=== PATIENT | female | born 1960 | race Caucasian/White ===

== ENCOUNTER 2017-07-27 11:03 | Emergency (ER) | payer OTHER ==
[~2017-07-27] VITALS: Ht 160 cm; Wt 71.3 kg
[~2017-07-27 11:03] MED LIST: ADVIL200 M1 PO; ASPIRIN81 M2 PO; Aspirin E.C. PO; CALCIUM 500 MG1 EACH PO; LISINOPRIL5 MG PO; PRILOSEC20 MG PO; VITAMIN D33000 UNIT PO
[2017-07-27 12:00] LABS: EOSINOPHIL (%) 0 % (0-5); HEMATOCRIT 41.1 % (36.0-46.0); IMMATURE GRANULOCYTE (%) 0.8 % (0.0-0.7); IMMATURE GRANULOCYTE COUNT 0.2 K/uL; INSTRUMENT ABS NEUTROPHIL CT 17.5 K/uL; LYMPHOCYTE COUNT 1.9 K/uL (1.0-2.8); MCH 25.7 PG (29.0-34.0); MCHC 32.1 G/DL (30.0-36.0); MEAN PLAT.VOLUME 10.5 uM^3 (9.5-12.4); MONOCYTE (%) 7.5 % (3-12); MONOCYTE COUNT 1.6 K/uL (0-0.8); NEUTROPHIL (%) 82.4 % (45-76); NEUTROPHIL COUNT 17.5 K/uL (1.8-6.4); PLATELET COUNT 450 K/uL (156-360); RBC DIS.WIDTH-CV 13.8 % (11.8-14.6); RBC DIS.WIDTH-SD 40.1 % (39-53); RED BLOOD COUNT 5.14 M/uL (3.80-5.20); WHITE BLOOD COUNT 21.2 K/uL (4.1-10.2)
[2017-07-27 12:08] LABS: INTER. NORMALIZED RATIO 1.6; PROTHROMBIN TIME 17.9 SEC (10.2-12.9)
[2017-07-27 12:10] LABS: CHLORIDE 102 mEq/L (99-109); MAGNESIUM 1.9 mg/dL (1.3-2.7); POTASSIUM 3.7 mEq/L (3.7-5.4); PTT 30.4 SEC (25-37); SODIUM 138 mEq/L (136-147)
[2017-07-27 12:12] LABS: GLUCOSE 103 mg/dL (70-99)
[2017-07-27 12:13] LABS: ANION GAP 16 MEQ/L (2-14)
[2017-07-27 12:14] LABS: TOTAL BILIRUBIN 0.7 mg/dL (0.0-1.0)
[2017-07-27 12:15] LABS: ALKALINE PHOSPHATASE 257 IU/L (3-129)
[2017-07-27 12:16] LABS: GFR ESTIMATE (CALCULATED) > 59 mL/min/
[2017-07-27 12:17] LABS: UREA NITROGEN (BUN) 13 mg/dL (9-23)
[2017-07-27 12:19] LABS: LIPASE 8 U/L (1.0-51.0)
[2017-07-27 12:21] LABS: TROP-I INTERPRETATION NEGATIVE; TROPONIN-I < 0.01 ng/mL (0.0-0.30)
[2017-07-27 14:05] VITALS: BP 106/79
== END 2017-07-27 14:20 | disposition short-term general hospital (02) ==
LOC: EME 11:03
PROVIDERS: Emergency Medicine
DX: R10.13 Epigastric pain (principal); R11.2 Nausea with vomiting, unspecified; R19.7 Diarrhea, unspecified; C53.9 Malignant neoplasm of cervix uteri, unspecified; I10 Essential (primary) hypertension; H91.91 Unspecified hearing loss, right ear; Z88.1 Allergy status to other antibiotic agents
CPT/HCPCS: 74022; 80053; 81003; 83690; 83735; 84484; 85025; 85610; 85730; 99281; 99284; J2270; J2405; J7030

== ENCOUNTER 2017-08-12 05:02 | Inpatient (IN) | payer OTHER ==
[~2017-08-12] VITALS: Ht 160 cm; Wt 90.6 kg
[2017-08-12 05:45] LABS: INTER. NORMALIZED RATIO 1.7; PROTHROMBIN TIME 18.8 SEC (10.2-12.9)
[2017-08-12 05:48] LABS: PTT 31.3 SEC (25-37)
[2017-08-12 05:49] LABS: HEMATOCRIT 31.4 % (36.0-46.0); MCH 25.8 PG (29.0-34.0); MCHC 32.8 G/DL (30.0-36.0); MCV 78.5 FL (83-99); MEAN PLAT.VOLUME 10.4 uM^3 (9.5-12.4); NRBC (%) 0.1 /100 WBC (0-0); PLATELET COUNT 434 K/uL (156-360); RBC DIS.WIDTH-CV 14.8 % (11.8-14.6); RBC DIS.WIDTH-SD 41.4 % (39-53)
[2017-08-12 05:50] LABS: CHLORIDE 103 mEq/L (99-109); POTASSIUM 3.5 mEq/L (3.7-5.4); SODIUM 136 mEq/L (136-147); WHITE BLOOD COUNT 43.5 K/uL (4.1-10.2)
[2017-08-12 05:52] LABS: GLUCOSE 116 mg/dL (70-99)
[2017-08-12 05:53] LABS: ANION GAP 13 MEQ/L (2-14)
[2017-08-12 05:54] LABS: TOTAL BILIRUBIN 0.3 mg/dL (0.0-1.0)
[2017-08-12 05:55] LABS: ALKALINE PHOSPHATASE 201 IU/L (3-129)
[2017-08-12 05:56] LABS: GFR ESTIMATE (CALCULATED) > 59 mL/min/
[2017-08-12 05:57] LABS: UREA NITROGEN (BUN) 12 mg/dL (9-23)
[2017-08-12 06:31] LABS: TROP-I INTERPRETATION NEGATIVE; TROPONIN-I < 0.01 ng/mL (0.0-0.30)
[2017-08-12 06:48] LABS: ABS NEUTROPHIL COUNT 39.1; ANISOCYTOSIS 2+; ATYPICAL LYMPHOCYTE 0.4 %; BAND NEUTROPHILS 9.7 % (0-8.0); EOSINOPHIL ABS CT 0; INSTRUMENT ABS NEUTROPHIL CT 30.6 K/uL; LYMPHOCYTES 2.4 % (15.0-45.0); MACROCYTES 1+; METAMYELOCYTES 0.4 %; MICROCYTOSIS 2+; NUCLEATED RBC'S 0.4; PLAT.SUFFICIENCY INCREASED; PLATELET CLUMPS PRESENT - PLATELET COUNT APPEARS INCREASED; POIKILOCYTOSIS 1+; POLYCHROMASIA 1+; SEG.NEUTROPHILS 80.2 % (46.0-76.0); SPHEROCYTES 1+
[2017-08-12] MEDS ORDERED: COMPAZINE5 MG PO (13:03)
[2017-08-12] MEDS ORDERED: OXYCODONE HCL5 MG PO (13:05)
[2017-08-12] MEDS ORDERED: OMEPRAZOLE40 M1 PO (13:05)
[2017-08-12] MEDS ORDERED: ZOFRAN ODT8 MG PO (13:06)
[2017-08-12] MEDS ORDERED: SPIRONOLACTONE50 MG PO (13:06)
[2017-08-12] MEDS ORDERED: METOPROLOL TART25 MG PO (13:06)
[2017-08-12] MEDS ORDERED: SUCRALFATE1 GM PO (13:07)
[2017-08-12] MEDS ORDERED: FONDAPARIN7.5 MG/0.6 SC (13:07)
[2017-08-12] MEDS ORDERED: LOMOTIL TABLET1 EACH PO (13:07)
[2017-08-12 15:45] LABS: TROP-I INTERPRETATION NEGATIVE; TROPONIN-I 0.07 ng/mL (0.0-0.30)
[2017-08-12 16:13] VITALS: BP 95/54
[2017-08-12 20:00] VITALS: BP 103/52
[2017-08-12 20:01] LABS: ADD MIUA? YES; BILIRUBIN NEGATIVE; BLOOD SMALL; COLOR YELLOW ((YELLOW)); GLUCOSE (STRIP) NEGATIVE; KETONES 5; LEUKOCYTES SMALL; NITRITE NEGATIVE; PROTEIN (STRIP) NEGATIVE; UROBILINOGEN 0.2 MG/DL (0.2-1.0)
[2017-08-12 20:15] LABS: SPECIFIC GRAVITY 1.064 (1.000-1.030)
[2017-08-12 20:40] LABS: CASTS NONE SEEN /LPF; EPITHELIAL CELLS 2+ /HPF; MUCUS NONE SEEN /LPF
[2017-08-12 20:41] LABS: BACTERIA 4+ /HPF; RED BLOOD CELLS NONE SEEN /HPF (0-5); UCUL ADDED? YES; WHITE BLOOD CELLS TNTC /HPF (0-5)
[2017-08-12 21:09] LABS: TROP-I INTERPRETATION NEGATIVE; TROPONIN-I 0.05 ng/mL (0.0-0.30)
[2017-08-12 23:55] VITALS: BP 108/54
[2017-08-13 04:00] VITALS: BP 97/56
[2017-08-13 05:55] LABS: MEAN PLAT.VOLUME 10.3 uM^3 (9.5-12.4); PLATELET COUNT 402 K/uL (156-360)
[2017-08-13 06:04] LABS: HEMATOCRIT 29.2 % (36.0-46.0); MCH 26.4 PG (29.0-34.0); MCHC 32.9 G/DL (30.0-36.0); MCV 80.4 FL (83-99); NRBC (%) 0.1 /100 WBC (0-0); RBC DIS.WIDTH-CV 15.3 % (11.8-14.6); RBC DIS.WIDTH-SD 44.2 % (39-53); RED BLOOD COUNT 3.63 M/uL (3.80-5.20)
[2017-08-13 06:08] LABS: WHITE BLOOD COUNT 43.2 K/uL (4.1-10.2)
[2017-08-13 06:13] LABS: ANION GAP 8 MEQ/L (2-14); CHLORIDE 104 MEQ/L (99-109); GFR ESTIMATE (CALCULATED) > 59 mL/min/; GLUCOSE 105 mg/dL (70-99); POTASSIUM 3.5 MEQ/L (3.7-5.4); SAMPLE HEMOLYSIS CHECK 0; SAMPLE ICTERIC CHECK 0; SAMPLE LIPEMIA CHECK 0; SODIUM 134 MEQ/L (136-147); UREA NITROGEN (BUN) 12 mg/dL (9-23)
[2017-08-13 07:30] VITALS: BP 100/58
[2017-08-13 11:45] VITALS: BP 105/60
[2017-08-13 15:30] VITALS: BP 102/59
[2017-08-13 20:08] VITALS: BP 97/56
[2017-08-13 23:32] VITALS: BP 100/60
[2017-08-14 03:22] VITALS: BP 118/55
[2017-08-14 05:22] LABS: MEAN PLAT.VOLUME 10.3 uM^3 (9.5-12.4); PLATELET COUNT 342 K/uL (156-360)
[2017-08-14 05:47] LABS: ANION GAP 11 MEQ/L (2-14); CHLORIDE 106 MEQ/L (99-109); GFR ESTIMATE (CALCULATED) > 59 mL/min/; GLUCOSE 80 mg/dL (70-99); POTASSIUM 3.7 MEQ/L (3.7-5.4); SAMPLE HEMOLYSIS CHECK 0; SAMPLE ICTERIC CHECK 0; SAMPLE LIPEMIA CHECK 0; SODIUM 138 MEQ/L (136-147); UREA NITROGEN (BUN) 12 mg/dL (9-23)
[2017-08-14 07:29] LABS: HEMATOCRIT 29.9 % (36.0-46.0); MCH 25.6 PG (29.0-34.0); MCHC 31.4 G/DL (30.0-36.0); MCV 81.5 FL (83-99); NRBC (%) 0.1 /100 WBC (0-0); RBC DIS.WIDTH-CV 15.6 % (11.8-14.6); RBC DIS.WIDTH-SD 44.6 % (39-53); RED BLOOD COUNT 3.67 M/uL (3.80-5.20)
[2017-08-14 07:40] VITALS: BP 119/69
[2017-08-14 11:57] VITALS: BP 115/67
[2017-08-14 16:00] VITALS: BP 114/64
[2017-08-14 19:45] VITALS: BP 108/68
[2017-08-14 23:48] VITALS: BP 108/74
[2017-08-15 04:41] VITALS: BP 111/71
[2017-08-15 05:34] LABS: PLATELET COUNT 263 K/uL (156-360)
[2017-08-15 05:39] LABS: HEMATOCRIT 32.1 % (36.0-46.0); MCH 26.6 PG (29.0-34.0); MCHC 32.7 G/DL (30.0-36.0); MCV 81.3 FL (83-99); NRBC (%) 0.1 /100 WBC (0-0); RBC DIS.WIDTH-SD 45.5 % (39-53); RED BLOOD COUNT 3.95 M/uL (3.80-5.20)
[2017-08-15 05:41] LABS: WHITE BLOOD COUNT 37.8 K/uL (4.1-10.2)
[2017-08-15 07:40] VITALS: BP 106/68
[2017-08-15 12:13] VITALS: BP 101/59
[2017-08-15 14:43] VITALS: BP 112/63
[2017-08-15 19:06] VITALS: BP 110/58
[2017-08-16 00:46] VITALS: BP 110/61
[2017-08-16 05:47] VITALS: BP 111/64
[2017-08-16 08:16] VITALS: BP 108/71
[2017-08-16 11:58] VITALS: BP 117/74
[2017-08-16 15:37] VITALS: BP 126/59
[2017-08-16 19:15] VITALS: BP 117/60
[2017-08-17] VITALS (16 sets, daily range): BP systolic 0–120; BP diastolic 0–83
[2017-08-17 05:14] LABS: MCH 26.1 PG (29.0-34.0); MCHC 33.3 G/DL (30.0-36.0); MCV 78.3 FL (83-99); RBC DIS.WIDTH-CV 16.4 % (11.8-14.6); RBC DIS.WIDTH-SD 42.6 % (39-53); RED BLOOD COUNT 3.83 M/uL (3.80-5.20)
[2017-08-17 05:15] LABS: WHITE BLOOD COUNT 46.6 K/uL (4.1-10.2)
[2017-08-17 05:18] LABS: CHLORIDE 106 mEq/L (99-109); POTASSIUM 3.4 mEq/L (3.7-5.4); SODIUM 135 mEq/L (136-147)
[2017-08-17 05:20] LABS: GLUCOSE 98 mg/dL (70-99)
[2017-08-17 05:21] LABS: ANION GAP 9 MEQ/L (2-14)
[2017-08-17 05:24] LABS: GFR ESTIMATE (CALCULATED) > 59 mL/min/; UREA NITROGEN (BUN) 14 mg/dL (9-23)
[2017-08-17 06:30] LABS: MEAN PLAT.VOLUME 9.8 uM^3 (9.5-12.4); PLAT.SUFFICIENCY DECREASED
[2017-08-17 06:42] LABS: PLATELET COUNT 71 K/uL (156-360)
[2017-08-17 08:26] LABS: HEMATOCRIT 32.4 % (36.0-46.0); MCH 25.7 PG (29.0-34.0); MCHC 32.1 G/DL (30.0-36.0); MEAN PLAT.VOLUME 9.7 uM^3 (9.5-12.4); PLATELET COUNT 70 K/uL (156-360); RBC DIS.WIDTH-CV 16.4 % (11.8-14.6); RBC DIS.WIDTH-SD 44.4 % (39-53); RED BLOOD COUNT 4.05 M/uL (3.80-5.20); WHITE BLOOD COUNT 47.4 K/uL (4.1-10.2)
[2017-08-17 08:43] LABS: ABS NEUTROPHIL COUNT 43.3; ANISOCYTOSIS 1+; ATYPICAL LYMPHOCYTE 1.7 %; BAND NEUTROPHILS 0.5 % (0-8.0); BURR CELLS 1+; EOSINOPHIL ABS CT 0; INSTRUMENT ABS NEUTROPHIL CT 39.6 K/uL; LYMPHOCYTES 3.9 % (15.0-45.0); MACROCYTES 1+; MYELOCYTES 0.4 %; OVALOCYTES 1+; PLAT.SUFFICIENCY DECREASED; POIKILOCYTOSIS 2+; SEG.NEUTROPHILS 90.9 % (46.0-76.0); SMUDGE CELLS 5.6
[2017-08-17 13:47] LABS: ALKALINE PHOSPHATASE 193 IU/L (3-129); DIRECT BILIRUBIN 0.1 mg/dL (0.0-0.3)
[2017-08-17 13:49] LABS: METH RESISTANT S AUREUS PCR NEGATIVE (NEGATIVE); PROBE CHECK PASS; SPECIMEN PROCESSING CONTROL PASS
[2017-08-17 13:55] LABS: TOTAL BILIRUBIN 0.2 MG/DL (0.0-1.0)
[2017-08-18] VITALS (23 sets, daily range): BP systolic 95–120; BP diastolic 63–91
[2017-08-18 10:56] LABS: ANION GAP 14 MEQ/L (2-14); CHLORIDE 105 MEQ/L (99-109); GFR ESTIMATE (CALCULATED) > 59 mL/min/; GLUCOSE 115 mg/dL (70-99); SAMPLE HEMOLYSIS CHECK 2; SAMPLE ICTERIC CHECK 0; SAMPLE LIPEMIA CHECK 0; SODIUM 135 MEQ/L (136-147); UREA NITROGEN (BUN) 16 mg/dL (9-23)
[2017-08-18 10:57] LABS: POTASSIUM 4.2 MEQ/L (3.7-5.4)
[2017-08-18 12:07] LABS: MEAN PLAT.VOLUME 9.9 uM^3 (9.5-12.4); PLATELET COUNT 67 K/uL (156-360)
[2017-08-18 12:13] LABS: HEMATOCRIT 29.9 % (36.0-46.0); MCH 26.1 PG (29.0-34.0); MCHC 32.4 G/DL (30.0-36.0); MCV 80.4 FL (83-99); RBC DIS.WIDTH-CV 16.6 % (11.8-14.6); RBC DIS.WIDTH-SD 44.9 % (39-53); RED BLOOD COUNT 3.72 M/uL (3.80-5.20)
[2017-08-18 12:18] LABS: WHITE BLOOD COUNT 56.6 K/uL (4.1-10.2)
[2017-08-19] VITALS (18 sets, daily range): BP systolic 90–123; BP diastolic 65–77
[2017-08-19 04:49] LABS: MEAN PLAT.VOLUME 10.2 uM^3 (9.5-12.4); PLATELET COUNT 77 K/uL (156-360)
[2017-08-19 04:56] LABS: HEMATOCRIT 26.7 % (36.0-46.0); MCH 26.8 PG (29.0-34.0); MCHC 33.7 G/DL (30.0-36.0); MCV 79.5 FL (83-99); RBC DIS.WIDTH-CV 16.7 % (11.8-14.6); RBC DIS.WIDTH-SD 44.1 % (39-53); RED BLOOD COUNT 3.36 M/uL (3.80-5.20)
[2017-08-19 04:58] LABS: WHITE BLOOD COUNT 50.2 K/uL (4.1-10.2)
[2017-08-19 05:41] LABS: TOTAL BILIRUBIN 0.2 mg/dL (0.0-1.0)
[2017-08-19 05:42] LABS: ALKALINE PHOSPHATASE 186 IU/L (3-129)
[2017-08-19 05:44] LABS: DIRECT BILIRUBIN 0.2 mg/dL (0.0-0.3)
[2017-08-19 10:04] LABS: CHLORIDE 104 mEq/L (99-109); POTASSIUM 3.7 mEq/L (3.7-5.4); SODIUM 134 mEq/L (136-147)
[2017-08-19 10:05] LABS: GLUCOSE 88 mg/dL (70-99)
[2017-08-19 10:07] LABS: ANION GAP 10 MEQ/L (2-14)
[2017-08-19 10:09] LABS: GFR ESTIMATE (CALCULATED) > 59 mL/min/
[2017-08-19 10:10] LABS: UREA NITROGEN (BUN) 20 mg/dL (9-23)
[2017-08-19 10:56] LABS: ABS NEUTROPHIL COUNT 47.8; ANISOCYTOSIS 1+; BAND NEUTROPHILS 0.5 % (0-8.0); BURR CELLS 2+; EOSINOPHIL ABS CT 0; LYMPHOCYTES 1.7 % (15.0-45.0); PLAT.SUFFICIENCY DECREASED; POIKILOCYTOSIS 2+; SEG.NEUTROPHILS 94.8 % (46.0-76.0); SMUDGE CELLS 2.6
[2017-08-19 14:53] LABS: Heparin Induced Plt Ab Positive (Negative)
[2017-08-19 16:51] LABS: UFH SRA Result POSITIVE (Negative)
[2017-08-20] VITALS (7 sets, daily range): BP systolic 101–120; BP diastolic 62–73
[2017-08-20 11:38] LABS: BASOPHIL COUNT 0.2 K/uL (0-0.1); EOSINOPHIL (%) 0 % (0-5); IMMATURE GRANULOCYTE (%) 4.1 % (0.0-0.7); IMMATURE GRANULOCYTE COUNT 2.1 K/uL; LYMPHOCYTE COUNT 2.7 K/uL (1.0-2.8); MEAN PLAT.VOLUME 10.3 uM^3 (9.5-12.4); MONOCYTE (%) 4.2 % (3-12); MONOCYTE COUNT 2.1 K/uL (0-0.8); NEUTROPHIL (%) 86.2 % (45-76)
[2017-08-20 11:47] LABS: HEMATOCRIT 28.1 % (36.0-46.0); MCH 26.8 PG (29.0-34.0); MCHC 32.7 G/DL (30.0-36.0); MCV 81.9 FL (83-99); RBC DIS.WIDTH-CV 17.7 % (11.8-14.6); RBC DIS.WIDTH-SD 46.5 % (39-53); RED BLOOD COUNT 3.43 M/uL (3.80-5.20)
[2017-08-20 11:50] LABS: PLATELET COUNT 158 K/uL (156-360)
[2017-08-21 00:21] VITALS: BP 108/71
[2017-08-21 03:42] VITALS: BP 115/67
[2017-08-21 07:07] LABS: HEMATOCRIT 25.6 % (36.0-46.0); MCH 26.6 PG (29.0-34.0); MCHC 33.2 G/DL (30.0-36.0); MCV 80.3 FL (83-99); RBC DIS.WIDTH-CV 17.2 % (11.8-14.6); RBC DIS.WIDTH-SD 45.4 % (39-53); RED BLOOD COUNT 3.19 M/uL (3.80-5.20)
[2017-08-21 07:11] LABS: PLATELET COUNT 216 K/uL (156-360); WHITE BLOOD COUNT 46.8 K/uL (4.1-10.2)
[2017-08-21 07:24] LABS: ANION GAP 13 MEQ/L (2-14); CHLORIDE 103 MEQ/L (99-109); GFR ESTIMATE (CALCULATED) > 59 mL/min/; GLUCOSE 80 mg/dL (70-99); POTASSIUM 3.5 MEQ/L (3.7-5.4); SAMPLE HEMOLYSIS CHECK 0; SAMPLE ICTERIC CHECK 0; SAMPLE LIPEMIA CHECK 0; SODIUM 135 MEQ/L (136-147); UREA NITROGEN (BUN) 22 mg/dL (9-23)
[2017-08-21 07:28] VITALS: BP 115/67
[2017-08-21 07:46] LABS: ABS NEUTROPHIL COUNT 43.3; ANISOCYTOSIS 2+; ATYPICAL LYMPHOCYTE 0.9 %; BAND NEUTROPHILS 3.5 % (0-8.0); EOSINOPHIL ABS CT 0; HYPOCHROMASIA 1+; INSTRUMENT ABS NEUTROPHIL CT 39.9 K/uL; MACROCYTES 1+; PLAT.SUFFICIENCY ADEQUATE; POLYCHROMASIA 1+; SEG.NEUTROPHILS 89.1 % (46.0-76.0)
[2017-08-21] MEDS ORDERED: XARELTO15 MG PO (10:48)
[2017-08-21] MEDS ORDERED: XARELTO20 MG PO (10:50)
[2017-08-21] MEDS ORDERED: DILTIAZEM 24HR120 MG PO (10:51)
[2017-08-24] MEDS ORDERED: COLACE100 MG PO (13:42)
[2017-08-24] MEDS ORDERED: LORAZEPAM0.5 MG PO (13:43)
== END 2017-08-21 13:27 | disposition home health service (06) | DRG 871 ==
LOC: EME 05:02 → EDOF 14:26 → 4EAST 14:26 → ENRESERV 14:35 → EDOF 15:16 → 4EAST 15:38 → ENRESERV 08-17 10:00 → 4WEST 08-17 12:01 → ENRESERV 08-19 17:47 → CANRESERV 08-19 17:47 → ENRESERV 08-20 14:55 → 5SOUTH 08-20 16:39
PROVIDERS: Emergency Medicine; Hospitalist; Internal Medicine; Internal Medicine Critical Care Medicine; Internal Medicine Hematology & Oncology
DX: A41.51 Sepsis due to Escherichia coli [E. coli] (principal); N39.0 Urinary tract infection, site not specified; I26.09 Other pulmonary embolism with acute cor pulmonale; I82.403 Acute embolism and thrombosis of unspecified deep veins of lower extremity, bilateral; K56.609 Unspecified intestinal obstruction, unspecified as to partial versus complete obstruction; C78.6 Secondary malignant neoplasm of retroperitoneum and peritoneum; D75.82 Heparin induced thrombocytopenia (HIT); E46 Unspecified protein-calorie malnutrition; R18.0 Malignant ascites; I47.1 Supraventricular tachycardia; C56.9 Malignant neoplasm of unspecified ovary; E87.6 Hypokalemia; R09.02 Hypoxemia; D63.8 Anemia in other chronic diseases classified elsewhere; I10 Essential (primary) hypertension; R60.0 Localized edema; H91.90 Unspecified hearing loss, unspecified ear; Z79.01 Long term (current) use of anticoagulants; Z85.41 Personal history of malignant neoplasm of cervix uteri; Z82.49 Family history of ischemic heart disease and other diseases of the circulatory system
CPT/HCPCS: 36415; 71020; 71275; 80048; 80053; 80076; 81003; 83605; 84484; 85025; 85027; 85384; 85610; 85730; 86022 90; 86304; 87040; 87077; 87086; 87186; 87641; 93005; 93306; 96360; 97530 GO; 99202; 99281; 99285; J0153; J0692; J0696; J0883; J1650; J2405; J3370; J7030; J7050; Q0164

== ENCOUNTER → 2017-08-25 | Outpatient (CLI) | payer OTHER ==
[~2017-08-25] MED LIST changes: +COLACE100 MG PO; +COMPAZINE5 MG PO; +DILTIAZEM 24HR120 MG PO; +FONDAPARIN7.5 MG/0.6 SC; +LOMOTIL TABLET1 EACH PO; +LORAZEPAM0.5 MG PO; +METOPROLOL TART25 MG PO; +OMEPRAZOLE40 M1 PO; +OXYCODONE HCL5 MG PO; +SPIRONOLACTONE50 MG PO; +SUCRALFATE1 GM PO; +XARELTO15 MG PO; +XARELTO20 MG PO; +ZOFRAN ODT8 MG PO
== END | disposition home or self-care (01) ==
LOC: PICC 08:54
DX: Z45.2 Encounter for adjustment and management of vascular access device (principal)